=== PATIENT | male | born 1995 | race African-American/Black ===

== ENCOUNTER 2018-04-17 12:41 | Emergency (ER) | payer OTHER ==
[~2018-04-17] VITALS: Ht 188 cm; Wt 155.6 kg
--- NOTE | 2018-04-17 15:33 | ED GI/GU/ABDOMINAL COMPLAINT ---
History of Present Illness General Chief Complaint: Male Genitourinary Problems Stated Complaint: GENITAL PAIN Source: patient Exam Limitations: no limitations Vital Signs & Intake/Output Vital Signs & Intake/Output Vital Signs Date Time Temp Pulse Resp B/P B/P Pulse O2 O2 Flow FiO2 Mean Ox Delivery Rate 04/17 1609 97.0 84 20 148/86 98 Room Air 04/17 1331 97.4 85 20 164/96 97 Room Air Allergies Uncoded Allergies: PINE APPLES (Severe, THROAT ITCHING 04/11/12) DUST (01/08/11) POLLEN (01/08/11) Reconcile Medications No Known Home Medications Triage Note: PT TO ER C/C BURNING AND SHARP PAIN TO PENIS x 1 WK. DENIES DRAINAGE. PAIN IS WORSE WHEN VOIDING. PT EVALUATED BY DELMAR LUCERO AT TRIAGE. GIVEN URINE SPECIMEN CONTAINER AT TRIAGE. Triage Nurses Notes Reviewed? yes Onset: Abrupt Duration: week(s): (1), constant, continues in ED Timing: recent history Quality/Severity: burning Location: urethral Radiation: no radiation HPI: 23-year-old male that is sexually active with both men and women comes in for further evaluation of dysuria. Patient presents been having a burning sensation that occurs while he please in after eating peas in his penis. He denies any testicular pain. He has some small bumps on the tip of his penis. Denies any open sores. Comes in for further evaluation and testing. Past History Travel History Traveled to [place] past 21 day No Medical History Any Pertinent Medical History? 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 No Review of Systems Review of Systems Constitutional: Reports: no symptoms. EENTM: Reports: no symptoms. Respiratory: Reports: no symptoms. Cardiovascular: Reports: no symptoms. GI: Reports: no symptoms. Genitourinary: Reports: see HPI. Musculoskeletal: Reports: no symptoms. Skin: Reports: no symptoms. Neurological/Psychological: Reports: no symptoms. Hematologic/Endocrine: Reports: no symptoms. Immunologic/Allergic: Reports: no symptoms. All Other Systems: Reviewed and Negative Physical Exam Physical Exam General Appearance: well developed/nourished, no apparent distress, alert, awake Head: atraumatic, normal appearance Ears, Nose, Throat, Mouth: moist mucous membrane Neck: normal inspection Respiratory: no respiratory distress Gastrointestinal: NOT EXAMINED Male Genitals: few scattered small white papules base of glans penis, no testicular pain, Back: normal inspection Extremities: normal range of motion Neurologic/Psych: awake, alert Skin: intact Core Measures ACS in differential dx? No Sepsis Present: No Sepsis Focused Exam Completed? No Progress Differential Diagnosis: STD, ureterolithiasis, urinary retention, urethritis, UTI/pyelo Plan of Care: Orders Procedure Date/time Status CHLAMYDIA-GC DNA PROBE 04/17 1332 Active URINALYSIS 04/17 1332 Complete Laboratory Tests 04/17/18 1352: Urine Color YEL, Urine Clarity CLEAR, Urine pH 6.5, Ur Specific [place] 1.025, Urine Protein TRACE H, Urine Ketones NEG, Urine Nitrite NEG, Urine Bilirubin NEG, Urine Urobilinogen 1.0, Ur Leukocyte Esterase NEG, Ur Microscopic SEDIMENT EXAMINED, Ur Epithelial Cells FEW, Urine Mucus FEW, Urine Hemoglobin NEG, Urine Glucose NEG Microbiology 04/17 135 URINE ROUT: GC DNA Probe - RECD 04/17 135 URINE ROUT: Chlamydia DNA Probe (PEPE) - RECD Initial ED EKG: none Comments: Follow-up with urologist. Return if any other concerns worsening symptoms. Departure Departure Disposition: HOME OR SELF CARE Condition: Stable Clinical Impression Primary Impression: Urethritis Referrals: Shila Berry APRN (PCP/Family) Ulices Altman MD Additional Instructions: Follow-up with urologist provided. Return if any other concerns worsening symptoms. Please go over all results of today's visit with your primary care doctor. Contact your primary care doctor to let them know you were here in the emergency room. There may be nonspecific findings which may not be related to your visit today here in the emergency room but may require further evaluation and chronic monitoring by your primary care doctor. If you had a laceration today the chance of foreign body always remains. You should follow-up with your primary care doctor for recheck in 3-5 days for a wound check. If you had an x-ray done there is a chance that a fracture could have been missed on initial read and you should follow-up with your primary care doctor for repeat x-rays if symptoms persist. If your blood pressure was elevated here in the emergency room please have rechecked by [facility] primary care doctor within the next 48. If you were prescribed a narcotic here in the emergency room or any type of controlled substances you're not allowed to drive while taking this medication or operate any type of heavy machinery. Narcotics can make you feel lightheaded dizziness nausea and can cause constipation. You may need to pick up truck driver a stool softener. Thank you for choosing [facility] emergency room. Please return to the emergency room immediately if you have any other concerns worsening of symptoms. Departure Forms: Customer Survey General Discharge Information Prescriptions: Current Visit Scripts No Known Home Medications
[2018-04-17 16:09] VITALS: BP 148/86
== END 2018-04-17 16:11 ==
LOC: ERH 12:41
DX: N34.2 Other urethritis (principal); F10.10 Alcohol abuse, uncomplicated
CPT/HCPCS: 81001; 87491; 87591; J0456; J0696